=== PATIENT | male | born 1980 | race African-American/Black ===

== ENCOUNTER 2017-01-25 04:50 | Emergency (ER) | payer MEDICAID, OTHER ==
[~2017-01-25] VITALS: Ht 180.3 cm; Wt 105.7 kg
[~2017-01-25 04:50] MED LIST: ALBUTEROL MDI; ORE25 PO
[2017-01-25 04:54] VITALS: BP 155/113
--- NOTE | 2017-01-25 04:58 | NUR ---
PT TAKEN TO BED 5
--- NOTE | 2017-01-25 04:59 | NUR ---
36Y M BIB SELF C/O cough, congestion, sore throat x2 days. PT DENIES N/V/D; SKIN IS PINK/WARM/DRY; AAOX4 WITH EVEN AND STEADY GAIT; LUNGS CLEAR BL; HR EVEN AND REGULAR; PT DENIES ANY FEVER, CP, SOB, AT THIS TIME; PATIENT STATES PAIN OF 7/10 AT THIS TIME; VSS; PATIENT POSITIONED FOR COMFORT; HOB ELEVATED; BEDRAILS UP X2; BED DOWN. ER MD MADE AWARE OF PT STATUS.
[2017-01-25] MEDS ORDERED: ALBUTEROL SULFATE/IPRATROPIU 3 ML SOL IH ONE (05:15)
[2017-01-25] MEDS ORDERED: ONDANSETRON 4 MG ODT PO ONE (05:15)
--- NOTE | 2017-01-25 07:05 | NUR ---
Patient discharged with v/s stable. Written and verbal after care instructions given and explained. Patient alert, oriented and verbalized understanding of instructions. Ambulatory with steady gait. All questions addressed prior to discharge. ID band removed. Patient advised to follow up with PMD. Rx of TESSALON 100MG, ZOFRAN ODT 4MG,ZITHROMAX 250MG given. Patient educated on indication of medication including possible reaction and side effects. Opportunity to ask questions provided and answered.
[2017-01-25 07:06] VITALS: BP 132/94
== END 2017-01-25 07:05 | disposition home or self-care (01) ==
LOC: MED 04:50
DX: J06.9 Acute upper respiratory infection, unspecified (principal); R11.2 Nausea with vomiting, unspecified; J45.909 Unspecified asthma, uncomplicated; I10 Essential (primary) hypertension; Z88.0 Allergy status to penicillin; Z88.8 Allergy status to other drugs, medicaments and biological substances
CPT/HCPCS: 36415; 71020; 87804; 94640; 99285; J7620; S0119